=== PATIENT | female | born 1995 | race Caucasian/White ===

== ENCOUNTER 2017-11-30 08:47 | Observation (INO) | payer MEDICAID, OTHER ==
[~2017-11-30] VITALS: Ht 182.9 cm; Wt 72.1 kg
[2017-11-30 09:57] LABS: Basophils # (auto) 0.1 uL; Basophils % (auto) 0.8 % (0.0-2.0); Eosinophils # (auto) 0.1 uL; Eosinophils % (auto) 0.6 % (0.0-7.0); Hematocrit 47.2 % (36.0-46.0); Hemoglobin 15.7 g/dL (12.2-16.2); Lymphocytes # (auto) 1.9 uL; Lymphocytes % (auto) 19.2 % (10.0-50.0); Mean Corpuscular Hemoglobin 30.9 pg (28.0-32.0); Mean Corpuscular Hgb Conc. 33.2 g/dL (32.0-36.0); Monocytes # (auto) 0.8 uL; Neutrophils # (auto) 7.1 uL; Neutrophils % (auto) 71.4 % (37.0-80.0); Platelet Count (auto) 272 10^3/uL (140-450); Red Blood Cells 5.07 10^6/uL (4.0-5.20); Red Cell Distribution Width 12.9 % (11.8-14.3); White Blood Cell 9.9 10^3/uL (4.4-10.8)
[2017-11-30 10:03] LABS: Urine Bacteria FEW /hpf (None Seen); Urine Blood Negative /uL (Negative); Urine Hyaline Cast MANY /lpf (0 - 2); Urine Mucus FEW (None Seen); Urine WBC 12 /hpf (0 - 5)
[2017-11-30 10:20] LABS: BUN/Creatinine Ratio 19.8; Bilirubin, Total 0.7 mg/dL (0.2-1.0); Potassium 4.1 mmol/L (3.5-5.1)
[2017-11-30] MEDS ORDERED: ONDANSETRON ODT 4 MG TAB PO ONE (11:30)
[2017-11-30 14:33] VITALS: BP 139/99
== END 2017-11-30 14:45 | disposition home or self-care (01) | DRG 690 ==
LOC: ER 08:47 → OVERFLOW 11:28 → ER 14:45
PROVIDERS: ADMIT Family Medicine; ATTEND Family Medicine
DX: N39.0 Urinary tract infection, site not specified (principal); R11.2 Nausea with vomiting, unspecified
CPT/HCPCS: 36415; 71045; 74176; 80053; 81001; 81025; 85025; 99285; G0378; Q0162

== ENCOUNTER 2022-11-13 18:37 | Emergency (ER) | payer MEDICAID ==
[2022-11-13] MEDS ORDERED: FLEET ENEMA(ADULT) 135 ML PR ONE (22:00)
[2022-11-14] MEDS ORDERED: DOCU-94 PO (01:16)
[2022-11-14 01:28] VITALS: BP 108/86
== END 2022-11-14 01:34 | disposition home or self-care (01) ==
LOC: ER 18:37 → EDBD 18:37 → EDUNIT# 18:37 → ER 11-14 01:34
DX: K59.00 Constipation, unspecified (principal)
CPT/HCPCS: 74018